=== PATIENT | female | born 1935 | race Caucasian/White ===

== ENCOUNTER 2017-10-14 16:28 | Inpatient (IN) | payer MEDICARE, OTHER ==
[~2017-10-14] VITALS: Ht 167.6 cm; Wt 53.7 kg
[~2017-10-14 16:28] MED LIST: CEFAZOLIN 1,000 MG ONE; PROPOFOL 10 MG/ML, 20ML ONE; SUCCINYLCHOLINE 20 MG/ML, 10ML ONE
[2017-10-14] MEDS ORDERED: SODIUM CHLORIDE 0.9% 1,000 ML IV ONE (18:03)
[2017-10-14] MEDS ORDERED: SODIUM CHLORIDE FLUSH 10ML SYR IVF PRN (18:30)
[2017-10-14] MEDS ORDERED: LORA0.5T PO (18:53)
[2017-10-14] MEDS ORDERED: DONE5TAB14 PO (18:53)
[2017-10-14] MEDS ORDERED: RISP0.2518 PO (18:53)
[2017-10-14] MEDS ORDERED: METOCLOPRAMIDE 5 MG/ML, 2ML IVPush ONE (19:00)
[2017-10-14] MEDS ORDERED: MORPHINE SULFATE 4 MG/ML, 1ML IVPush PRN ×2 (19:00→22:00)
[2017-10-14] MEDS ORDERED: PLEASE ENTER ALLERGIES MC SCH (19:00)
[2017-10-14] MEDS ORDERED: FENTANYL PF 100 MCG/2ML IV PRN (20:00)
[2017-10-14] MEDS ORDERED: OXYcodone 5 MG/5 ML ORAL.SOL UDC PO PRN (20:00)
[2017-10-14] MEDS ORDERED: LABETALOL 5MG/ML, 20ML IV PRN (20:00)
[2017-10-14] MEDS ORDERED: LORazepam 2 MG/ML, 1ML IVPush PRN (20:00)
[2017-10-14] MEDS ORDERED: hydrALAzine 20 MG/ML, 1ML IV PRN (20:00)
[2017-10-14] MEDS ORDERED: PROMETHAZINE 25 MG/ML, 1ML IV PRN (20:00)
[2017-10-14] MEDS ORDERED: morphine SULFATE 10 MG/ML, 1ML IV PRN (20:00)
[2017-10-14] MEDS ORDERED: OXYcodone 5 MG/5 ML ORAL.SOL UDC ONE (20:52)
[2017-10-14] MEDS: SODIUM CHLORIDE 0.9% 1,000 ML IV SCH (21:42)
[2017-10-14 21:48] VITALS: BP 159/46
[2017-10-14] MEDS ORDERED: ONDANSETRON ODT 4 MG PO PRN (22:00)
[2017-10-14] MEDS ORDERED: hydrALAzine 20 MG/ML, 1ML IVPush PRN (22:00)
[2017-10-14] MEDS ORDERED: ACETAMINOPHEN 325 MG TABLET PO PRN (22:00)
[2017-10-14] MEDS ORDERED: LORazepam 0.5MG TABLET PO SCH (22:00)
[2017-10-14] MEDS ORDERED: OXYcodone/APAP 5/325MG TABLET PO PRN (23:00)
[2017-10-14] MEDS ORDERED: DONE23TA3 PO (23:44)
[2017-10-14] MEDS ORDERED: ASPI-496 PO (23:44)
[2017-10-14] MEDS ORDERED: VENL150C6 PO (23:44)
[2017-10-14] MEDS ORDERED: RISP0.5T3 PO (23:44)
[2017-10-14] MEDS ORDERED: NEOM28.44 TP (23:44)
[2017-10-14] MEDS ORDERED: [UNRECOGNIZED DRUG - CODE] PO (23:44)
[2017-10-14] MEDS ORDERED: MAGN400O7 PO (23:44)
[2017-10-14] MEDS ORDERED: POLY17PO5 PO (23:44)
[2017-10-14] MEDS ORDERED: mylanta PO (23:44)
[2017-10-14] MEDS ORDERED: ACET-1600 PO (23:44)
[2017-10-15] MEDS ORDERED: MAGNESIUM HYDROXIDE 8%, 30ML UDC PO PRN (00:30)
[2017-10-15] MEDS ORDERED: ALUMINUM/MAG/SIMETHICONE 30 ML UDC PO PRN (00:30)
[2017-10-15] MEDS ORDERED: ACETAMINOPHEN 500 MG TABLET PO PRN (00:30)
[2017-10-15 00:31] VITALS: BP 138/73
[2017-10-15] MEDS: CEFAZOLIN 2,000 MG in DEXTROSE 5% 50 ML IV SCH ×2 (01:40→09:28)
[2017-10-15 05:15] LABS: BASOPHILS # (AUTO) 0.03 x10^3/uL (0-0.1); BASOPHILS % (AUTO) 0 % (0-1); EOSINOPHILS # (AUTO) 0.12 x10^3/uL (0-0.4); EOSINOPHILS % (AUTO) 1 % (1-7); LYMPHOCYTES # (AUTO) 1.44 x10^3/uL (1-3.4); LYMPHOCYTES % (AUTO) 15 % (22-44); MD NO; MEAN CORPUSCULAR HEMOGLOBIN 30.5 pg (27.0-34.8); MEAN CORPUSCULAR HGB CONC 33.6 g/dL (32.4-35.8); MEAN CORPUSCULAR VOLUME 90.9 fL (80-100); MEAN PLATELET VOLUME 7.6 fL (7.4-10.4); MONOCYTES # (AUTO) 0.79 x10^3/uL (0.2-0.8); MONOCYTES % (AUTO) 9 % (2-9); NEUTROPHILS # (AUTO) 6.95 x10^3/uL (1.8-6.8); NEUTROPHILS % (AUTO) 75 % (42-75); PLATELET COUNT 249 x10^3/uL (130-400); RED BLOOD COUNT 4.17 x10^6/uL (3.82-5.3); RED CELL DISTRIBUTION WIDTH 13.3 % (9.6-15.2)
[2017-10-15 05:24] LABS: ANION GAP 5 mmol/L (5-15); CALCIUM 7.6 mg/dL (8.5-10.1); CHLORIDE 100 mmol/L (98-107)
[2017-10-15 05:27] LABS: CREATININE 0.79 mg/dL (0.55-1.02)
[2017-10-15] MEDS: ASPIRIN 81 MG TABLET EC PO SCH ×2 (06:33→08:12)
[2017-10-15] MEDS: LORazepam 1MG TABLET PO SCH ×3 (06:33→10:57)
[2017-10-15 07:44] VITALS: BP 115/58
[2017-10-15] MEDS: RISPERIDONE 0.5 MG TABLET PO SCH ×2 (08:13→17:06)
[2017-10-15] MEDS: VENLAFAXINE 75 MG CAP ER PO SCH (08:16)
[2017-10-15] MEDS: POLYETHYLENE GLYCOL 17 GM PACKET PO SCH (08:18)
[2017-10-15] MEDS ORDERED: POLYETHYLENE GLYCOL 17 GM PACKET PO SCH (09:00)
[2017-10-15] MEDS ORDERED: IBUPROFEN 200 MG TABLET PO PRN (12:30)
[2017-10-15] MEDS: ACETAMINOPHEN 500 MG TABLET PO SCH ×2 (12:38→20:54)
[2017-10-15 13:07] VITALS: BP 133/71
[2017-10-15] MEDS: SODIUM CHLORIDE 0.9% 1,000 ML IV SCH (17:06)
[2017-10-15 18:41] VITALS: BP 134/72
[2017-10-15] MEDS: DONEPEZIL 23 MG HOMEMEDPO SCH (20:53)
[2017-10-16 02:29] VITALS: BP 120/69
[2017-10-16] MEDS: ACETAMINOPHEN 500 MG TABLET PO SCH ×3 (05:23→21:17)
[2017-10-16] MEDS: SODIUM CHLORIDE 0.9% 1,000 ML IV SCH ×2 (05:23→16:58)
[2017-10-16] MEDS: ASPIRIN 81 MG TABLET EC PO SCH (05:23)
[2017-10-16 07:57] VITALS: BP 132/72
[2017-10-16] MEDS: VENLAFAXINE 75 MG CAP ER PO SCH (08:25)
[2017-10-16] MEDS: POLYETHYLENE GLYCOL 17 GM PACKET PO SCH (08:25)
[2017-10-16] MEDS: RISPERIDONE 0.5 MG TABLET PO SCH ×2 (08:25→16:40)
[2017-10-16 12:44] VITALS: BP 145/80
[2017-10-16] MEDS: LORazepam 1MG TABLET PO PRN (16:50)
[2017-10-16 18:54] VITALS: BP 124/67
[2017-10-16] MEDS: DONEPEZIL 23 MG HOMEMEDPO SCH (21:00)
[2017-10-17 01:55] VITALS: BP 149/75
[2017-10-17] MEDS: ACETAMINOPHEN 500 MG TABLET PO SCH ×2 (04:30→12:30)
[2017-10-17] MEDS: ASPIRIN 81 MG TABLET EC PO SCH (06:05)
[2017-10-17] MEDS: SODIUM CHLORIDE 0.9% 1,000 ML IV SCH (06:12)
[2017-10-17 07:42] LABS: BASOPHILS # (AUTO) 0.04 x10^3/uL (0-0.1); BASOPHILS % (AUTO) 1 % (0-1); EOSINOPHILS # (AUTO) 0.17 x10^3/uL (0-0.4); EOSINOPHILS % (AUTO) 2 % (1-7); LYMPHOCYTES # (AUTO) 1.73 x10^3/uL (1-3.4); LYMPHOCYTES % (AUTO) 24 % (22-44); MD NO; MEAN CORPUSCULAR HEMOGLOBIN 30.5 pg (27.0-34.8); MEAN CORPUSCULAR HGB CONC 33.7 g/dL (32.4-35.8); MEAN CORPUSCULAR VOLUME 90.6 fL (80-100); MEAN PLATELET VOLUME 7.9 fL (7.4-10.4); MONOCYTES # (AUTO) 0.76 x10^3/uL (0.2-0.8); MONOCYTES % (AUTO) 10 % (2-9); NEUTROPHILS # (AUTO) 4.64 x10^3/uL (1.8-6.8); NEUTROPHILS % (AUTO) 63 % (42-75); PLATELET COUNT 302 x10^3/uL (130-400); RED BLOOD COUNT 4.39 x10^6/uL (3.82-5.3); RED CELL DISTRIBUTION WIDTH 13.7 % (9.6-15.2)
[2017-10-17 07:49] LABS: ANION GAP 8 mmol/L (5-15); CALCIUM 8.4 mg/dL (8.5-10.1); CHLORIDE 104 mmol/L (98-107)
[2017-10-17 07:50] LABS: CREATININE 0.79 mg/dL (0.55-1.02)
[2017-10-17] MEDS: POLYETHYLENE GLYCOL 17 GM PACKET PO SCH (08:20)
[2017-10-17] MEDS: VENLAFAXINE 75 MG CAP ER PO SCH (08:22)
[2017-10-17] MEDS: RISPERIDONE 0.5 MG TABLET PO SCH (08:22)
[2017-10-17] MEDS: LORazepam 1MG TABLET PO PRN (08:22)
[2017-10-17] MEDS ORDERED: IBUP-1484 PO (10:25)
[2017-10-17 13:00] VITALS: BP 137/74
== END 2017-10-17 14:25 | DRG 481 ==
LOC: ED 18:02 → EDIP 18:03 → ED 18:06 → 4NOR 21:41
PROVIDERS: ADMIT Hospitalist; ATTEND Family Medicine
PROC: 0QS734Z Reposition Left Upper Femur with Internal Fixation Device, Percutaneous Approach (ICD-10-PCS; principal; 2017-10-14 18:30)
DX: S72.012A Unspecified intracapsular fracture of left femur, initial encounter for closed fracture (principal); E87.1 Hypo-osmolality and hyponatremia; G30.9 Alzheimer's disease, unspecified; F02.80 Dementia in other diseases classified elsewhere, unspecified severity, without behavioral disturbance, psychotic disturbance, mood disturbance, and anxiety; F32.9 Major depressive disorder, single episode, unspecified; F41.9 Anxiety disorder, unspecified; W18.39XA Other fall on same level, initial encounter; Y93.89 Activity, other specified; Y92.129 Unspecified place in nursing home as the place of occurrence of the external cause; Y99.8 Other external cause status
CPT/HCPCS: 36415; 76000; 80048; 83735; 84100; 85025; 96360; C1713; J0690; J2704; J0330; J7030